=== PATIENT | female | born 1990 | race African-American/Black ===

== ENCOUNTER 2017-03-26 09:18 | Inpatient (IN) | payer OTHER ==
[2017-03-26 10:26] VITALS: BMI 34.7
--- NOTE | 2017-03-26 12:15 | HP ---
CIWA Score - CIWA Score Nausea/Vomitin-No Nausea/No Vomiting Muscle Tremors: 4-Moderate,w/Arms Extend Anxiety: 3 Agitation: 4-Moderately Restless Paroxysmal Sweats: 3 Orientation: 0-Oriented Tacttile Disturbances: 0-None Auditory Disturbances: 0-None Visual Disturbances: 0-None Headache: 0-None Present CIWA-Ar Total Score: 14 Admission ROS BHS - HPI Chief Complaint: I am here to get help. Allergies/Adverse Reactions: Allergies Allergy/AdvReac Type Severity Reaction Status Date / Time NUTS Allergy Severe Swelling Uncoded 03/26/17 10:07 History of Present Illness: pt is a 26yr old female with a history alcohol dependence seeking detox for treatment. This is her first time in detox. Exam Limitations: No Limitations - Ebola screening Have you traveled outside of the country in the last 21 days: No Have you had contact with anyone from an Ebola affected area: No Have you been sick,other than usual withdrawal symptoms: No Do you have a fever: No - Review of Systems Constitutional: Chills, Diaphoresis, Loss of Appetite, Night Sweats EENT: reports: No Symptoms Reported Respiratory: reports: No Symptoms reported Cardiac: reports: No Symptoms Reported GI: reports: Poor Appetite, Poor Fluid Intake : reports: No Symptoms Reported Musculoskeletal: reports: No Symptoms Reported Integumentary: reports: Flushing, Sweating Endocrine: reports: Excessive Sweating, Flushing, Intolerance to Cold, Intolerance to Heat Hematology: reports: No Symptoms Reported Psychiatric: reports: Judgement Intact, Mood/Affect Appropiate, Orientated x3, Agitated, Anxious Other Systems: Reviewed and Negative Patient History - Patient Medical History Hx Anemia: No Hx Asthma: No Hx Chronic Obstructive Pulmonary Disease (COPD): No Hx Cancer: No Hx Cardiac Disorders: No Hx Congestive Heart Failure: No Hx Hypertension: No Hx Hypercholesterolemia: No Hx Pacemaker: No HX Cerebrovascular Accident: No Hx Seizures: No Hx Diabetes: No Hx Gastrointestinal Disorders: No Hx Liver Disease: No Hx Genitourinary Disorders: No Hx Sexually Transmitted Disorders: No Hx Renal Disease (ESRD): No Hx Thyroid Disease: No Hx Human Immunodeficiency Virus (HIV): No (negative) Hx Hepatitis C: No (negative) Hx Depression: Yes Hx Suicide Attempt: No (denies) Hx Bipolar Disorder: No Hx Schizophrenia: No - Patient Surgical History Past Surgical History: Yes Hx Neurologic Surgery: No Hx Cataract Extraction: No Hx Cardiac Surgery: No Hx Lung Surgery: No Hx Breast Surgery: No Hx Breast Biopsy: No Hx Abdominal Surgery: Yes (lap band in 2015) Hx Appendectomy: No Hx Cholecystectomy: No Hx Genitourinary Surgery: No Hx Section: No Hx Orthopedic Surgery: No Anesthesia Reaction: No - PPD History Previous Implant?: Yes Documented Results: Negative w/o proof Implanted On Prior [facility] Admission?: No PPD to be Administered?: Yes - Reproductive History Patient is a Female of Child Bearing Age (11 -55 yrs old): Yes Last Menstrual Period: 03/01/17 Patient : No - Smoking Cessation Smoking history: Current every day smoker Have you smoked in the past 12 months: Yes Aproximately how many cigarettes per day: 5 Hx Chewing Tobacco Use: No Initiated information on smoking cessation: Yes 'Breaking Loose' booklet given: 03/26/17 - Substance & Tx. History Hx Alcohol Use: Yes Hx Substance Use: No Substance Use Type: Alcohol Hx Substance Use Treatment: No - Substances Abused Alcohol-whisky/beer Route: Oral Frequency: Daily Amount used: 3 pts./2-3 (40 oz.) Age of first use: 11 Date of Last Use: 03/26/17 Family Disease History - Family Disease History Family Disease History: Diabetes: Grandparent, [place]: Grandparent Admission Physical Exam BHS - Vital Signs Vital Signs: Vital Signs - 24 hr 03/26/17 09:59 Temperature 97.6 F Pulse Rate 118 H Respiratory 18 Rate Blood Pressure 142/85 - Physical General Appearance: Yes: Appropriately Dressed, Moderate Distress, Obese, Tremorous, Irritable, Sweating, Anxious HEENTM: Yes: Hearing grossly Normal, Normal Voice Respiratory: Yes: Lungs Clear, Normal Breath Sounds, No Respiratory Distress Neck: Yes: No masses,lesions,Nodules Breast: Yes: Within Normal Limits Cardiology: Yes: Regular Rhythm, Regular Rate, S1, S2 Abdominal: Yes: Normal Bowel Sounds, Non Tender Genitourinary: Yes: Within Normal Limits Back: Yes: Normal Inspection Musculoskeletal: Yes: full range of Motion, Gait Steady Extremities: Yes: Normal Inspection, Tremors Neurological: Yes: Fully Oriented, Alert, Normal Response Integumentary: Yes: Normal Color, Diaphoresis Lymphatic: Yes: Within Normal Limits - Diagnostic (1) Alcohol dependence with uncomplicated withdrawal Current Visit: Yes Status: Chronic (2) Nicotine dependence Current Visit: Yes Status: Chronic Qualifiers: Nicotine product type: cigarettes Substance use status: uncomplicated Qualified Code(s): F17.210 - Nicotine dependence, cigarettes, uncomplicated Cleared for Admission [facility] - Detox or Rehab [facility] Level of Care: Medically Managed Detox Regimen/Protocol: Librium S Breath Alcohol Content Breath Alcohol Content: 0.262 Urine Pregancy Test - Result Urine Test Results: Negative- NO Line Present Urine Drug Screen - Results Drug Screen Negative: Yes
[2017-03-26] MEDS ORDERED: ACETAMINOPHEN 325 MG TABLET (FP) PO PRN (12:24)
[2017-03-26] MEDS ORDERED: IBUPROFEN 400 MG TABLET (FP) PO PRN (12:24)
[2017-03-26] MEDS ORDERED: MENTHOL/PHENOL 1 EACH UD MM PRN (12:24)
[2017-03-26] MEDS ORDERED: guaiFENesin/D-METHORPHAN HB 10 ML UNIT-DOSE CUPS PO PRN (12:24)
[2017-03-26] MEDS ORDERED: LOPERAMIDE HCL 2 MG CAPSULE PO PRN (12:24)
[2017-03-26] MEDS ORDERED: NICOTINE POLACRILEX 4 MG GUM BUC PRN (12:24)
[2017-03-26] MEDS ORDERED: MAG HYDROX/AL HYDROX/SIMETH 30 ML UNIT-DOSE CUP PO PRN (12:24)
[2017-03-26] MEDS ORDERED: hydrOXYzine PAMOATE 50 MG CAPSULE (FP) PO PRN (12:24)
[2017-03-26] MEDS ORDERED: chlordiazePOXIDE HCL 25 MG CAPSULE PO PRN (12:24)
[2017-03-26] MEDS ORDERED: MAGNESIUM CITRATE 300 ML BOTTLE PO PRN (12:24)
[2017-03-26] MEDS ORDERED: MAGNESIUM HYDROX 2400MG/30ML ORAL SUSPENSION 30 ML CUP PO PRN (12:24)
[2017-03-26] MEDS ORDERED: P-EPHED 60MG/TRIPROLIDI 2.5MG TABLET PO PRN (12:24)
[2017-03-26] MEDS ORDERED: chlordiazePOXIDE HCL 25 MG CAPSULE PO ONE (14:10)
[2017-03-26 14:41] LABS: HIV 1 & 2 AB NEGATIVE; HIV 1 AGp24 NEGATIVE
--- NOTE | 2017-03-26 16:24 | CONSULT ---
[facility] Psychiatric Consult - Data Date of interview: 03/26/17 Admission source: [facility] Identifying data: First admission to [facility] for this 26 y/o AA female seeking detox treatment on for alcohol dependence.Patient is single without children,domiciled,unemployed and supported on welfare. Substance Abuse History: Discussed with the patient in this interview.She confirms this report from [facility] : Smoking Cessation. Smoking history: Current every day smoker. Have you smoked in the past 12 months: Yes. Aproximately how many cigarettes per day: 5. Hx Chewing Tobacco Use: No. Initiated information on smoking cessation: Yes. 'Breaking Loose' booklet given: . - Substance & Tx. History. Hx Alcohol Use: Yes. Hx Substance Use: No. Substance Use Type: Alcohol. Hx Substance Use Treatment: No. - Substances Abused. Alcohol-whisky/beer. Route: Oral. Frequency: Daily. Amount used: 3 pts./2-3 (40 oz.). Age of first use: 11. Date of Last Use: 03/26/17 Medical History: Patient endorses good general health. Psychiatric History: Patient denies. Physical/Sexual Abuse/Trauma History: Patient denies. Additional Comment: Drug Screen is negative.Noted. Mental Status Exam - Mental Status Exam Alert and Oriented to: Time, Place, Person Cognitive Function: Good Patient Appearance: Well Groomed Mood: Withdrawn, Hopeful Affect: Appropriate, Normal Range Patient Behavior: Fatigued, Appropriate, Cooperative Speech Pattern: Clear Voice Loudness: Normal Thought Process: Goal Oriented Thought Disorder: Not Present Hallucinations: Denies Suicidal Ideation: Denies Homicidal Ideation: Denies Insight/Judgement: Poor Sleep: Well Appetite: Good Muscle strength/Tone: Normal Gait/Station: Normal Psychiatric Findings - Problem List ([place] 1, 2,3) (1) Alcohol dependence with uncomplicated withdrawal Current Visit: Yes Status: Acute (2) Nicotine dependence Current Visit: Yes Status: Acute Qualifiers: Nicotine product type: cigarettes Substance use status: uncomplicated Qualified Code(s): F17.210 - Nicotine dependence, cigarettes, uncomplicated - Initial Treatment Plan Initial Treatment Plan: Psychoeducation.Detoxification is under way.Observation.
[2017-03-26] MEDS: chlordiazePOXIDE HCL 25 MG CAPSULE PO SCH ×2 (18:10→22:25)
[2017-03-26 19:08] LABS: URINE APPEARANCE SLCLOUDY; URINE BILIRUBIN NEGATIVE (NEGATIVE); URINE BLOOD 1+ (NEGATIVE); URINE COLOR LTYELLOW; URINE GLUCOSE (UA) NEGATIVE (NEGATIVE); URINE KETONE NEGATIVE (NEGATIVE); URINE LEUK ESTERASE TRACE (NEGATIVE); URINE NITRITE NEGATIVE (NEGATIVE); URINE UROBILINOGEN NEGATIVE mg/dL (0.2-1.0)
[2017-03-26 19:17] LABS: URINE PROTEIN 1+ (NEGATIVE)
[2017-03-26 19:20] LABS: URINE BACTERIA RARE /hpf (NONE SEEN); URINE HYALINE CAST 1 /lpf; URINE MUCUS RARE; URINE RBC 2 /hpf (0-3); URINE WBC 2 /hpf (3-5)
[2017-03-26] MEDS: THIAMINE HCL 100 MG TABLET (FP) PO SCH (22:25)
[2017-03-27] MEDS: chlordiazePOXIDE HCL 25 MG CAPSULE PO SCH ×4 (05:30→22:49)
[2017-03-27 10:31] LABS: MCH 29.4 pg (25.7-33.7); MCHC 32.5 g/dl (32.0-36.0); MEAN CELL VOLUME 90.5 fl (80-96); MEAN PLT VOLUME 10.4 fl (7.5-11.1); PLATELET COUNT 242 K/MM3 (134-434); RDW 13.6 % (11.6-15.6); WHITE BLOOD COUNT 3.7 K/mm3 (4.0-10.0)
[2017-03-27] MEDS: PRENATAL VITAMINS W/ FOLIC ACID TABLET (FP) PO SCH (10:32)
[2017-03-27] MEDS: NICOTINE 21 MG/24 HOURS TOPICAL PATCH TD SCH (10:33)
[2017-03-27 11:03] LABS: ALBUMIN 3.9 g/dl (3.4-5.0); ALK PHOS 69 U/L (45-117); ANION GAP 9 (8-16); BILIRUBIN,TOTAL 0.3 mg/dL (0.2-1.0); CO2 28 mmol/L (21-32); CREATININE 0.8 mg/dL (0.55-1.02); GLUCOSE,RANDOM 98 mg/dL (74-106); SGOT/AST 52 U/L (15-37); SGPT/ALT 35 U/L (12-78)
--- NOTE | 2017-03-27 13:39 | PN ---
[facility] CIWA - CIWA Score Nausea/Vomitin-Mild Nausea/No Vomiting Muscle Tremors: 3 Anxiety: 4-Mod. Anxious/Guarded Agitation: 3 Paroxysmal Sweats: 3 Orientation: 0-Oriented Tacttile Disturbances: 0-None Auditory Disturbances: 0-None Visual Disturbances: 0-None Headache: 0-None Present CIWA-Ar Total Score: 14 S Progress Note (SOAP) Subjective: Anxiety,tremors,sweating,interrupted sleep,restless Objective: 03/27/17 13:38 Vital Signs - 8 hr 03/27/17 03/27/17 06:00 10:00 Temperature 98.1 F 97.7 F Pulse Rate 71 98 H Respiratory 18 20 Rate Blood Pressure 138/76 156/96 Laboratory Last Values WBC 3.7 K/mm3 (4.0-10.0) L 03/27/17 06:00 RBC 4.60 M/mm3 (3.60-5.2) 03/27/17 06:00 Hgb 13.5 GM/dL (10.7-15.3) 03/27/17 06:00 Hct 41.7 % (32.4-45.2) 03/27/17 06:00 MCV 90.5 fl (80-96) 03/27/17 06:00 MCH 29.4 pg (25.7-33.7) 03/27/17 06:00 MCHC 32.5 g/dl (32.0-36.0) 03/27/17 06:00 RDW 13.6 % (11.6-15.6) 03/27/17 06:00 Plt Count 242 K/MM3 (134-434) 03/27/17 06:00 MPV 10.4 fl (7.5-11.1) 03/27/17 06:00 Sodium 141 mmol/L (136-145) 03/27/17 06:00 Potassium 4.4 mmol/L (3.5-5.1) 03/27/17 06:00 Chloride 104 mmol/L (98-107) 03/27/17 06:00 Carbon Dioxide 28 mmol/L (21-32) 03/27/17 06:00 Anion Gap 9 (8-16) 03/27/17 06:00 BUN 14 mg/dL (7-18) 03/27/17 06:00 Creatinine 0.8 mg/dL (0.55-1.02) 03/27/17 06:00 Creat Clearance w eGFR > 60 (>60) 03/27/17 06:00 Random Glucose 98 mg/dL (74-106) 03/27/17 06:00 Calcium 9.0 mg/dL (8.5-10.1) 03/27/17 06:00 Total Bilirubin 0.3 mg/dL (0.2-1.0) 03/27/17 06:00 AST 52 U/L (15-37) H 03/27/17 06:00 ALT 35 U/L (12-78) 03/27/17 06:00 Alkaline Phosphatase 69 U/L (45-117) 03/27/17 06:00 Total Protein 8.0 g/dl (6.4-8.2) 03/27/17 06:00 Albumin 3.9 g/dl (3.4-5.0) 03/27/17 06:00 Urine Color Ltyellow 03/26/17 18:53 Urine Appearance Slcloudy 03/26/17 18:53 Urine pH 5.0 (5.0-8.0) 03/26/17 18:53 Ur Specific [place] 1.020 (1.005-1.025) 03/26/17 18:53 Urine Protein 1+ (NEGATIVE) H 03/26/17 18:53 Urine Glucose (UA) Negative (NEGATIVE) 03/26/17 18:53 Urine Ketones Negative (NEGATIVE) 03/26/17 18:53 Urine Blood 1+ (NEGATIVE) H 03/26/17 18:53 Urine Nitrite Negative (NEGATIVE) 03/26/17 18:53 Urine Bilirubin Negative (NEGATIVE) 03/26/17 18:53 Urine Urobilinogen Negative mg/dL (0.2-1.0) 03/26/17 18:53 Ur Leukocyte Esterase Trace (NEGATIVE) 03/26/17 18:53 Urine RBC 2 /hpf (0-3) 03/26/17 18:53 Urine WBC 2 /hpf (3-5) 03/26/17 18:53 Ur Epithelial Cells Rare /hpf (FEW) 03/26/17 18:53 Urine Bacteria Rare /hpf (NONE SEEN) 03/26/17 18:53 Hyaline Casts 1 /lpf 03/26/17 18:53 Urine Mucus Rare 03/26/17 18:53 RPR Titer Nonreactive (NONREACTIVE) 03/27/17 06:00 HIV 1&2 Antibody Screen Negative 03/26/17 11:50 HIV P24 Antigen Negative 03/26/17 11:50 labs noted Assessment: 03/27/17 13:38 Withdrawal sx. Plan: Continue detox
[2017-03-27] MEDS: THIAMINE HCL 100 MG TABLET (FP) PO SCH (22:49)
[2017-03-27] MEDS: diphenhydrAMINE HCL 50 MG CAPSULE PO PRN (22:49)
[2017-03-28] MEDS: chlordiazePOXIDE HCL 25 MG CAPSULE PO SCH ×2 (06:06→10:39)
[2017-03-28] MEDS: NICOTINE 21 MG/24 HOURS TOPICAL PATCH TD SCH (10:39)
[2017-03-28] MEDS: PRENATAL VITAMINS W/ FOLIC ACID TABLET (FP) PO SCH (10:39)
--- NOTE | 2017-03-28 11:51 | PN ---
[facility] CIWA - CIWA Score Nausea/Vomitin-No Nausea/No Vomiting Muscle Tremors: 3 Anxiety: 3 Agitation: 3 Paroxysmal Sweats: 3 Orientation: 0-Oriented Tacttile Disturbances: 0-None Auditory Disturbances: 0-None Visual Disturbances: 0-None Headache: 2-Mild CIWA-Ar Total Score: 14 S Progress Note (SOAP) Subjective: Anxiety,tremors,sweating,interrupted sleep,restless. Objective: 03/28/17 11:50 Vital Signs - 8 hr 03/28/17 03/28/17 06:00 10:00 Temperature 97.2 F L 97.0 F L Pulse Rate 74 98 H Respiratory 18 16 Rate Blood Pressure 131/84 128/96 Laboratory Last Values WBC 3.7 K/mm3 (4.0-10.0) L 03/27/17 06:00 RBC 4.60 M/mm3 (3.60-5.2) 03/27/17 06:00 Hgb 13.5 GM/dL (10.7-15.3) 03/27/17 06:00 Hct 41.7 % (32.4-45.2) 03/27/17 06:00 MCV 90.5 fl (80-96) 03/27/17 06:00 MCH 29.4 pg (25.7-33.7) 03/27/17 06:00 MCHC 32.5 g/dl (32.0-36.0) 03/27/17 06:00 RDW 13.6 % (11.6-15.6) 03/27/17 06:00 Plt Count 242 K/MM3 (134-434) 03/27/17 06:00 MPV 10.4 fl (7.5-11.1) 03/27/17 06:00 Sodium 141 mmol/L (136-145) 03/27/17 06:00 Potassium 4.4 mmol/L (3.5-5.1) 03/27/17 06:00 Chloride 104 mmol/L (98-107) 03/27/17 06:00 Carbon Dioxide 28 mmol/L (21-32) 03/27/17 06:00 Anion Gap 9 (8-16) 03/27/17 06:00 BUN 14 mg/dL (7-18) 03/27/17 06:00 Creatinine 0.8 mg/dL (0.55-1.02) 03/27/17 06:00 Creat Clearance w eGFR > 60 (>60) 03/27/17 06:00 Random Glucose 98 mg/dL (74-106) 03/27/17 06:00 Calcium 9.0 mg/dL (8.5-10.1) 03/27/17 06:00 Total Bilirubin 0.3 mg/dL (0.2-1.0) 03/27/17 06:00 AST 52 U/L (15-37) H 03/27/17 06:00 ALT 35 U/L (12-78) 03/27/17 06:00 Alkaline Phosphatase 69 U/L (45-117) 03/27/17 06:00 Total Protein 8.0 g/dl (6.4-8.2) 03/27/17 06:00 Albumin 3.9 g/dl (3.4-5.0) 03/27/17 06:00 Urine Color Ltyellow 03/26/17 18:53 Urine Appearance Slcloudy 03/26/17 18:53 Urine pH 5.0 (5.0-8.0) 03/26/17 18:53 Ur Specific [place] 1.020 (1.005-1.025) 03/26/17 18:53 Urine Protein 1+ (NEGATIVE) H 03/26/17 18:53 Urine Glucose (UA) Negative (NEGATIVE) 03/26/17 18:53 Urine Ketones Negative (NEGATIVE) 03/26/17 18:53 Urine Blood 1+ (NEGATIVE) H 03/26/17 18:53 Urine Nitrite Negative (NEGATIVE) 03/26/17 18:53 Urine Bilirubin Negative (NEGATIVE) 03/26/17 18:53 Urine Urobilinogen Negative mg/dL (0.2-1.0) 03/26/17 18:53 Ur Leukocyte Esterase Trace (NEGATIVE) 03/26/17 18:53 Urine RBC 2 /hpf (0-3) 03/26/17 18:53 Urine WBC 2 /hpf (3-5) 03/26/17 18:53 Ur Epithelial Cells Rare /hpf (FEW) 03/26/17 18:53 Urine Bacteria Rare /hpf (NONE SEEN) 03/26/17 18:53 Hyaline Casts 1 /lpf 03/26/17 18:53 Urine Mucus Rare 03/26/17 18:53 RPR Titer Nonreactive (NONREACTIVE) 03/27/17 06:00 HIV 1&2 Antibody Screen Negative 03/26/17 11:50 HIV P24 Antigen Negative 03/26/17 11:50 labs noted Assessment: 03/28/17 11:51 Withdrawal sx. Plan: Continue detox
--- NOTE | 2017-03-28 14:04 | EKG ---
Test Reason : Blood Pressure : / mmHG Vent. Rate : 089 BPM Atrial Rate : 089 BPM P-R Int : 158 ms QRS Dur : 088 ms QT Int : 372 ms P-R-T Axes : 058 054 046 degrees QTc Int : 452 ms NORMAL SINUS RHYTHM WITH SINUS ARRHYTHMIA NORMAL ECG NO PREVIOUS ECGS AVAILABLE Confirmed by GILMA RAMÍREZ, BENJAMIN ([id number]) on 03/28/2017 2:03:47 PM Referred By: Confirmed By:BENJAMIN DILLARD MD
[2017-03-28] MEDS: chlordiazePOXIDE 5 MG CAPSULE PO SCH ×2 (17:18→22:30)
[2017-03-28] MEDS: diphenhydrAMINE HCL 50 MG CAPSULE PO PRN (22:30)
[2017-03-28] MEDS: THIAMINE HCL 100 MG TABLET (FP) PO SCH (22:30)
[2017-03-29] MEDS: chlordiazePOXIDE 5 MG CAPSULE PO SCH (05:30)
--- NOTE | 2017-03-29 09:20 | PN ---
S Progress Note Note: pt did not want to complete detox; pt spoke with staff and still she decided to leave. Pt signed out AMA.
--- NOTE | 2017-03-29 09:22 | DS ---
[facility] Detox Discharge Summary Admission Date: 03/26/17 Discharge Date: 03/29/17 (did not want to complete detox) - History Present History: Alcohol Dependence - Physical Exam Results Vital Signs: Vital Signs Temperature 97.2 F L 03/29/17 06:00 Pulse Rate 68 03/29/17 06:00 Respiratory Rate 18 03/29/17 06:00 Blood Pressure 127/82 03/29/17 06:00 O2 Sat by Pulse Oximetry (%) - Treatment Hospital Course: Responded well, Discharged Condition Good - Medication Discharge Medications: Ambulatory Orders NK [No Known Home Medication] 03/26/17 - Diagnosis (1) Alcohol dependence with uncomplicated withdrawal Current Visit: Yes Status: Chronic (2) Nicotine dependence Current Visit: Yes Status: Chronic Qualifiers: Nicotine product type: cigarettes Substance use status: uncomplicated Qualified Code(s): F17.210 - Nicotine dependence, cigarettes, uncomplicated - AMA Did Patient Leave Against Medical Advice: Yes ("I want to go home")
[2017-03-29 10:24] VITALS: BP 120/76; PULSE 124; TEMP 97.5
[2017-03-29] MEDS ORDERED: chlordiazePOXIDE HCL 10 MG CAPSULE PO SCH (17:00)
== END 2017-03-29 09:40 | disposition left against medical advice (07) | DRG 770 ==
LOC: YASAS 09:18 → Y6N 13:09
PROVIDERS: ADMIT Internal Medicine; ATTEND Internal Medicine
PROC: HZ2ZZZZ Detoxification Services for Substance Abuse Treatment (ICD-10-PCS; principal; 2017-03-26)
DX: F10.230 Alcohol dependence with withdrawal, uncomplicated (principal); F17.210 Nicotine dependence, cigarettes, uncomplicated; E66.9 Obesity, unspecified; Z68.34 Body mass index [BMI] 34.0-34.9, adult; Z91.010 Allergy to peanuts; Z98.84 Bariatric surgery status
CPT/HCPCS: 36415; 80053; 81003; 81015; 85027; 86593; 87389; 93005; 93010